=== PATIENT | male | born 1990 | race Two or more races ===

== ENCOUNTER 2023-07-07 20:04 | Emergency (ER) | payer SELFPAY ==
[2023-07-07] MEDS: diphenhydrAMINE 25 MG Cap PO ONE (22:12)
[2023-07-07] MEDS: predniSONE 10 MG Tab PO ONE (22:13)
== END 2023-07-07 22:20 | disposition home or self-care (01) ==
LOC: MW.ED 20:04
DX: L50.0 Allergic urticaria (principal)
CPT/HCPCS: 99283; A9270